=== PATIENT | female | born 2005 | race Asian ===

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

== ENCOUNTER 2023-02-08 23:00 | Emergency (ER) | payer OTHER ==
[~2023-02-08] VITALS: Ht 154.9 cm; Wt 81.8 kg
[2023-02-08] MEDS ORDERED: PERTUSS(ACELL),DIPH,TET VAC/PF 0.5 ML SYRINGE IM. ONE (23:30)
[2023-02-08] MEDS ORDERED: AMOX TR/POT CLAV 875 MG/125 MG TABLET PO ONE (23:30)
[2023-02-09 00:30] VITALS: BP 119/69
[2023-02-09] MEDS ORDERED: AMOX1TAB16 PO (00:34)
== END 2023-02-09 00:30 | disposition home or self-care (01) ==
LOC: EMS 23:04
DX: S51.051A Open bite, right elbow, initial encounter (principal); Z90.49 Acquired absence of other specified parts of digestive tract; W54.0XXA Bitten by dog, initial encounter; Y93.89 Activity, other specified; Y92.89 Other specified places as the place of occurrence of the external cause; Y99.8 Other external cause status
CPT/HCPCS: 90471; 90715; 99283